=== PATIENT | female | born 1930 | race African-American/Black ===

== ENCOUNTER → 2018-03-01 | Outpatient (CLI) | payer MEDICARE ==
--- NOTE | 2018-03-01 14:11 | RADIOLOGY REPORT (SQ) ---
EXAM DESCRIPTION: CHEST PA/LATERAL COMPLETED DATE/TIME: 03/01/2018 1:41 pm REASON FOR STUDY: COUGH COMPARISON: None. EXAM PARAMETERS: NUMBER OF VIEWS: two views TECHNIQUE: Digital Frontal and Lateral radiographic views of the chest acquired. RADIATION DOSE: NA LIMITATIONS: none FINDINGS: LUNGS AND PLEURA: No opacities, masses or pneumothorax. No pleural effusion. MEDIASTINUM AND HILAR STRUCTURES: No masses or contour abnormalities. HEART AND VASCULAR STRUCTURES: Heart normal size. No evidence for failure. BONES: No acute findings. HARDWARE: None in the chest. OTHER: No other significant finding. IMPRESSION: NO SIGNIFICANT RADIOGRAPHIC FINDING IN THE CHEST. TECHNICAL DOCUMENTATION: JOB ID: [id number] [employer]- All Rights Reserved Reading location - IP/workstation name: [email or web address]
== END ==
LOC: OD 12:54
PROVIDERS: ATTEND Nurse Practitioner Family
DX: R05 Cough (principal)
CPT/HCPCS: 71046

== ENCOUNTER 2018-05-28 20:21 | Emergency (ER) | payer MEDICARE ==
[2018-05-28 21:26] LABS: ABSOLUTE LYMPHOCYTES (AUTO) 0.8 10^3/uL (0.5-4.7); ABSOLUTE MONOCYTES (AUTO) 0.4 10^3/uL (0.1-1.4); ABSOLUTE NEUT (AUTO) 5.6 10^3/uL (1.7-8.2); BASOPHILS % (AUTO) 0.4 % (0-2); EOSINOPHILS % (AUTO) 0.4 % (0-6); HEMATOCRIT 29.4 % (36.0-47.0); HEMOGLOBIN 9.9 g/dL (12.0-15.5); LYMPHOCYTES % (AUTO) 10.9 % (13-45); MEAN CORPUSCULAR HEMOGLOBIN 28.7 pg (27.0-33.4); MEAN CORPUSCULAR HGB CONC 33.8 g/dL (32.0-36.0); MEAN CORPUSCULAR VOLUME 85 fl (80-97); MONOCYTES % (AUTO) 6.5 % (3-13); PLATELET COUNT 186 10^3/uL (150-450); RED BLOOD COUNT 3.46 10^6/uL (3.72-5.28); RED CELL DISTRIBUTION WIDTH 14.8 % (11.5-14.0); SEGMENTED NEUTROPHILS % (AUTO) 81.8 % (42-78); TOTAL CELLS COUNTED % (AUTO) 100 %; WHITE BLOOD COUNT 6.9 10^3/uL (4.0-10.5)
[2018-05-28 21:36] LABS: INTERNATIONAL RATION (INR) 1.02; PROTHROMBIN TIME 13.9 SEC (11.4-15.4)
[2018-05-28 21:53] LABS: ALANINE AMINOTRANSFERASE 23 U/L (9-52); ALBUMIN 3.8 g/dL (3.5-5.0); ALKALINE PHOSPHATASE 65 U/L (38-126); ANION GAP 8 (5-19); ASPARTATE AMINO TRANSFERASE 16 U/L (14-36); BILIRUBIN,DIRECT 0.1 mg/dL (0.0-0.4); BILIRUBIN,TOTAL 0.2 mg/dL (0.2-1.3); BLOOD UREA NITROGEN 34 mg/dL (7-20); CALCIUM 9.2 mg/dL (8.4-10.2); CARBON DIOXIDE 26 mmol/L (22-30); CHLORIDE 105 mmol/L (98-107); GLUCOSE 118 mg/dL (75-110); TOTAL PROTEIN 6.6 g/dL (6.3-8.2)
--- NOTE | 2018-05-28 22:29 | ER Document Report ---
ED General - General Chief Complaint: Rectal Bleeding Stated Complaint: RECTAL HEMORRHAGE Time Seen by Provider: 05/28/18 21:56 Primary Care Provider: DHARA BENITO FNP-C [Primary Care Provider] - Follow up as needed Notes: Patient is an 87-year-old female past medical history of hypertension, hyperlipidemia, chronic anemia, presents complaining of one episode of bloody bowel movement. Patient states just prior to arrival she states she was having a good bowel movement. States that this was a large volume bowel movement. She states that when she wiped she noticed that there was a pink tinge on the paper. When she stood up she noticed that there is a small amount of blood and several clots in the toilet. This prompted her to come to the emergency department for further assessment. No history of GI bleed in the past. Does not use any form of anticoagulation. Has not seen her primary care doctor regarding today's concerns. Denies any abdominal pain, nausea, vomiting or hematemesis. Nothing improves or worsens her symptoms. At the time of my evaluation the patient denies any symptoms of any kind, laughing and joking during exam and history taking. TRAVEL OUTSIDE OF THE [place] IN LAST 30 DAYS: No - Related Data Allergies/Adverse Reactions: Penicillins Allergy (Verified 05/28/18 20:52) Past Medical History - General Information source: Patient - Social History Smoking Status: Former Smoker Frequency of alcohol use: None Drug Abuse: None Lives with: Family Family History: Reviewed & Not Pertinent Review of Systems - Review of Systems Notes: Constitutional: Negative for fever. HENT: Negative for sore throat. Eyes: Negative for visual changes. Cardiovascular: Negative for chest pain. Respiratory: Negative for shortness of breath. Gastrointestinal: Positive for rectal bleeding Genitourinary: Negative for dysuria. Musculoskeletal: Negative for back pain. Skin: Negative for rash. Neurological: Negative for headaches, weakness or numbness. 10 point ROS negative except as marked above and in HPI. Physical Exam - Vital signs Vitals: Temp Pulse Resp BP Pulse Ox 97.7 F 93 20 126/69 H 98 05/28/18 20:42 05/28/18 20:42 05/28/18 20:42 05/28/18 20:42 05/28/18 20:42 Interpretation: Normal Notes: PHYSICAL EXAMINATION: GENERAL: Well-appearing, well-nourished and in no acute distress. HEAD: Atraumatic, normocephalic. EYES: Pupils equal round and reactive to light, extraocular movements intact, s clera anicteric, conjunctiva are normal. ENT: nares patent, oropharynx clear without exudates. Moist mucous membranes. NECK: Normal range of motion, supple without lymphadenopathy LUNGS: Breath sounds clear to auscultation bilaterally and equal. No wheezes rales or rhonchi. HEART: Regular rate and rhythm without murmurs ABDOMEN: Soft, nontender, normoactive bowel sounds. No guarding, no rebound. No masses appreciated. Rectal: Multiple external hemorrhoids. Scant bright red blood around the anus. Digital rectal exam with brown stool with no blood content. EXTREMITIES: Normal range of motion, no pitting or edema. No cyanosis. NEUROLOGICAL: No focal neurological deficits. Moves all extremities spontaneously and on command. PSYCH: Normal mood, normal affect. SKIN: Warm, Dry, normal turgor, no rashes or lesions noted. Course - Re-evaluation Re-evalutation: 05/28/18 22:28 Patient presents with bright red blood per rectum likely diverticular or hemorrhoidal in origin. Patient does have several large external hemorrhoids as well as one palpable internal hemorrhoid. There does not appear to be any active bleeding. Although there is noted blood on a liner that she is wearing. Brown stool is present in the rectal vault although there is some bright red blood still on the outside of the anus. Patient is anemic at a hemoglobin of 9.9. She states that she does have a long-standing history of anemia at baseline but does not know where her hemoglobin normally runs and unfortunately do not have any previous labs. Patient's vitals are within acceptable limits. Her heart rate is 93, blood pressure 113 on 71. She has not had any additional bloody bowel movement since coming to the emergency department and only had one prior to arrival. Will recheck a second hemoglobin at 4 hours from initial and asked that the patient notify us for any further bright red blood per rectum. Patient has not had a colonoscopy in 11-12 years, would like to avoid a repeat colonoscopy at this advanced age I think this is a reasonable goal. The patient does not take any form of anticoagulation. She is otherwise very well in appearance, laughing and joking with me on examination. 05/29/18 01:40 Patient has not had any further rectal bleeding. No additional bloody bowel movements. Hemoglobin has gone from 9.9-9.4. Patient remains without tachycardia or hypotension, current heart rate is 93. Blood pressure 113 and 72. Please note that the last captured heart rate of 107 was much higher than patient had been running and I do not believe this is an accurate reflection of her heart rate. I have had a risks and benefits conversation with the patient and her daughter at the bedside regarding hospitalization for further serial CBCs and possible colonoscopy if these levels continue to deteriorate versus outpatient follow-up with her primary care doctor within the next 12 hours which the patient states she can easily achieved. We have reviewed that should she have any further bloody bowel movements at home she is to return to the emergency department immediately if she elects to go home. The patient and her daughter have elected to go home stating that they would rather monitor at home and follow-up with primary care as opposed to be hospitalized. They verbalized understanding that she has any further bloody bowel movements she is to return to the emergency department immediately. We have also reviewed the any lightheadedness, passing out, global weakness or vomiting would also be an indication to return. Patient has capacity. I believe this is an acceptable decision at this point. 05/29/18 03:54 - Vital Signs Vital signs: Temp Pulse Resp BP Pulse Ox 97.7 F 93 14 113/72 97 05/28/18 20:42 05/28/18 20:42 05/29/18 01:01 05/29/18 01:01 05/29/18 01:01 - Laboratory Result Diagrams: 05/29/18 00:10 05/28/18 21:05 Laboratory results interpreted by me: 05/28/18 05/28/18 05/29/18 21:05 21:05 00:10 RBC 3.46 L 3.31 L Hgb 9.9 L 9.4 L Hct 29.4 L 28.1 L RDW 14.8 H 14.9 H Seg Neutrophils % 81.8 H Lymphocytes % 10.9 L BUN 34 H Est GFR ( Amer) 56 L Est GFR (Non-Af Amer) 47 L Glucose 118 H Discharge - Discharge Clinical Impression: Rectal bleeding Anemia Qualifiers: Anemia type: unspecified type Qualified Code(s): D64.9 - Anemia, unspecified Condition: Stable Disposition: HOME, SELF-CARE Additional Instructions: Your seen today for rectal bleeding. Your hemoglobin went from 9.9-9.4 over the course of 5 hours. You elected to go home today in follow-up with your primary care doctor as opposed to be hospitalized. You need to return to the emergency department immediately if you have any further bloody bowel movements, pass out, become lightheaded, began vomiting, or have any other symptoms that are worrisome to you. Please follow-up with your primary care doctor today in the morning. Referrals: DHARA BENITO FNP-C [Primary Care Provider] - Follow up as needed
[2018-05-29 01:06] LABS: HEMATOCRIT 28.1 % (36.0-47.0); HEMOGLOBIN 9.4 g/dL (12.0-15.5); MEAN CORPUSCULAR HEMOGLOBIN 28.5 pg (27.0-33.4); MEAN CORPUSCULAR HGB CONC 33.6 g/dL (32.0-36.0); MEAN CORPUSCULAR VOLUME 85 fl (80-97); PLATELET COUNT 156 10^3/uL (150-450); RED BLOOD COUNT 3.31 10^6/uL (3.72-5.28); RED CELL DISTRIBUTION WIDTH 14.9 % (11.5-14.0); WHITE BLOOD COUNT 5.8 10^3/uL (4.0-10.5)
[2018-05-29 01:48] VITALS: BP 113/72
== END 2018-05-29 02:00 | disposition home or self-care (01) ==
LOC: ER 20:21
DX: K62.5 Hemorrhage of anus and rectum (principal); D64.9 Anemia, unspecified; I10 Essential (primary) hypertension; E78.5 Hyperlipidemia, unspecified; Z88.0 Allergy status to penicillin
CPT/HCPCS: 36415; 80053; 85025; 85027; 85610; 99283

== ENCOUNTER 2019-05-06 08:10 | Inpatient (IN) | payer MEDICARE ==
[2019-05-06 08:48] LABS: ABSOLUTE EOSINOPHILS # (AUTO) 0.1 10^3/uL (0.0-0.6); ABSOLUTE LYMPHOCYTES (AUTO) 0.9 10^3/uL (0.5-4.7); ABSOLUTE MONOCYTES (AUTO) 0.4 10^3/uL (0.1-1.4); ABSOLUTE NEUT (AUTO) 2.9 10^3/uL (1.7-8.2); BASOPHILS % (AUTO) 0.6 % (0-2); EOSINOPHILS % (AUTO) 1.4 % (0-6); HEMATOCRIT 31.3 % (36.0-47.0); HEMOGLOBIN 10.6 g/dL (12.0-15.5); LYMPHOCYTES % (AUTO) 20.1 % (13-45); MEAN CORPUSCULAR HGB CONC 33.9 g/dL (32.0-36.0); MEAN CORPUSCULAR VOLUME 86 fl (80-97); MONOCYTES % (AUTO) 8.9 % (3-13); PLATELET COUNT 198 10^3/uL (150-450); RED BLOOD COUNT 3.66 10^6/uL (3.72-5.28); RED CELL DISTRIBUTION WIDTH 13.8 % (11.5-14.0); TOTAL CELLS COUNTED % (AUTO) 100 %; WHITE BLOOD COUNT 4.2 10^3/uL (4.0-10.5)
[2019-05-06 09:05] LABS: ANION GAP 8 (5-19); BLOOD UREA NITROGEN 26 mg/dL (7-20); CALCIUM 9.2 mg/dL (8.4-10.2); CARBON DIOXIDE 28 mmol/L (22-30); CHLORIDE 105 mmol/L (98-107); GLUCOSE 112 mg/dL (75-110); POTASSIUM 3.9 mmol/L (3.6-5.0)
--- NOTE | 2019-05-06 12:06 | ER Document Report ---
Entered by DARRELL NARANJO SCRIBE 05/06/19 1115 Acting as scribe for:EVELINA FERRERA IV, MD ED General - General Chief Complaint: Rectal Bleeding Stated Complaint: RECTAL BLEEDING Time Seen by Provider: 05/06/19 11:13 Primary Care Provider: DHARA BENITO FNP-C [Primary Care Provider] - Follow up as needed Mode of Arrival: Medic Information source: Patient, Relative Notes: This 88 year old female patient brought in by EMS presents to the ED today with complaints of sudden onset rectal bleeding that began this morning. Patient states that she noticed dark red blood clots that came from her rectum in her urinary pad after her bowel movement. Daughter states that this has happened before less than x6 months ago and that the patient had a noninvasive video capsule performed. Patient denies history of diverticulosis or diverticulitis. Patient denies being on blood thinners. Patient denies any pain at this time. TRAVEL OUTSIDE OF THE [place] IN LAST 30 DAYS: No - Related Data Allergies/Adverse Reactions: Penicillins Allergy (Verified 05/06/19 10:51) Home Medications: Chlorthalidone. Omeprazole. Verapamil ER. Pravastatin. Celecoxib. Yadira D3. Anastrozole Past Medical History - General Information source: Patient - Social History Smoking Status: Unknown if Ever Smoked Cigarette use (# per day): No Chew tobacco use (# tins/day): No Smoking Education Provided: No Frequency of alcohol use: None Drug Abuse: None Family History: Reviewed & Not Pertinent Patient has suicidal ideation: No Patient has homicidal ideation: No - Past Medical History Cardiac Medical History: Reports: Hx Hypertension Renal/ Medical History: Reports: Hx Kidney Stones GI Medical History: Reports: Hx Gastroesophageal Reflux Disease Musculoskeletal Medical History: Reports Hx Arthritis Past Surgical History: Reports: Hx Breast Surgery - Left breast Review of Systems - Review of Systems Constitutional: No symptoms reported EENT: No symptoms reported Cardiovascular: No symptoms reported Respiratory: No symptoms reported Gastrointestinal: See HPI, Rectal bleeding. denies: Abdominal pain Genitourinary: No symptoms reported Female Genitourinary: No symptoms reported Musculoskeletal: See HPI. denies: Other - Rectal pain Skin: No symptoms reported Hematologic/Lymphatic: No symptoms reported Neurological/Psychological: No symptoms reported -: Yes All other systems reviewed and negative Physical Exam - Vital signs Vitals: Temp Pulse Resp BP Pulse Ox 97.5 F 101 H 16 133/81 H 98 05/06/19 08:39 05/06/19 08:39 05/06/19 08:39 05/06/19 08:39 05/06/19 08:39 - General General appearance: Appears well, Alert In distress: None - HEENT Head: Normocephalic, Atraumatic Eyes: Normal Pupils: PERRL - Respiratory Respiratory status: No respiratory distress Chest status: Nontender Breath sounds: Normal Chest palpation: Normal - Cardiovascular Rhythm: Regular Heart sounds: Normal auscultation Murmur: No - Abdominal Inspection: Normal Distension: No distension Bowel sounds: Normal Tenderness: Nontender - Abdomen soft Organomegaly: No organomegaly - Rectal Stool: Heme positive Hemorrhoids: External - Multiple - Back Back: Normal, Nontender - Extremities General upper extremity: Normal inspection General lower extremity: Normal inspection - Neurological Neuro grossly intact: Yes - Psychological Associated symptoms: Normal affect, Normal mood - Skin Skin Temperature: Warm Skin Moisture: Dry Skin Color: Normal Course - Vital Signs Vital signs: Temp Pulse Resp BP Pulse Ox 97.5 F 101 H 16 133/81 H 98 05/06/19 08:39 05/06/19 08:39 05/06/19 08:39 05/06/19 08:39 05/06/19 08:39 - Laboratory Result Diagrams: 05/06/19 08:36 05/06/19 08:36 Laboratory results interpreted by me: 05/06/19 05/06/19 08:36 08:36 RBC 3.66 L Hgb 10.6 L Hct 31.3 L BUN 26 H Est GFR (MDRD) Non-Af 50 L Glucose 112 H - Consults DR. MCKEON Time consulted: 12:20 - AGREEED PT NEEDED TO BE ADMITTED, BOWEL PREPPED THEN CONTACT SURGICALIST FOR SCOPE Reason for consultation: 05/06/19 12:27 GI BLEED Consulted provider: will see as inpatient DR. DELCID Time consulted: 12:27 Reason for consultation: 05/06/19 12:29 GI BLEED Consulted provider: will come to ER Discharge - Discharge Clinical Impression: GI bleed Condition: Good Disposition: ADMITTED OBSERVATION Admitting Provider: Fredy (Hospitalist) Unit Admitted: Medical Floor Referrals: DHARA BENITO FNP-C [Primary Care Provider] - Follow up as needed I personally performed the services described in the documentation, reviewed and edited the documentation which was dictated to the scribe in my presence, and it accurately records my words and actions.
[2019-05-06] MEDS ORDERED: ACETAMINOPHEN 325 MG TABLET PO PRN (12:45)
[2019-05-06] MEDS ORDERED: ONDANSETRON HCL INJ/PF 4 MG/2 ML SDV IV PRN (12:45)
[2019-05-06] MEDS ORDERED: NORMAL SALINE 1000 ML 1,000 ML IV PRN (12:45)
[2019-05-06] MEDS ORDERED: HYDRALAZINE HCL INJ/PF 20 MG/1 ML SDV IV PRN (12:50)
--- NOTE | 2019-05-06 12:58 | PDOC H&P ---
History of Present Illness Admission Date/PCP: MAITE MARR Patient complains of: Passing bright-colored blood per rectum History of Present Illness: FEDE OLIVAS is a 88 year old female history of hypertension, osteoarthritis, gastroesophageal reflux disease, history of breast biopsies for possible breast cancer on anastrozole came to the emergency room with complaints of passing bright-colored blood per rectum from this morning. It happened twice last 1 year. Denies any constipation denies any diarrhea denies any nausea vomiting or abdominal pains. Denies any problems with appetite. Denies any dizziness lightheadedness or headaches. pt is taking Celebrex for osteoarthritis. Patient requesting for DNI. If necessary she wants chest compressions and shocks. Past Medical History Cardiac Medical History: Reports: Hypertension EENT Medical History: Reports: None Neurological Medical History: Reports: None Endocrine Medical History: Reports: None Renal/ Medical History: Reports: None Malignancy Medical History: Reports: Breast Cancer GI Medical History: Reports: Gastroesophageal Reflux Disease Musculoskeltal Medical History: Reports: Arthritis Skin Medical History: Reports: None Psychiatric Medical History: Reports: None Hematology: Reports: Anemia Past Surgical History Past Surgical History: Reports: None Social History Information Source: Patient Lives with: Family Smoking Status: Unknown if Ever Smoked Electronic Cigarette use?: No Hx Recreational Drug Use: No Hx Prescription Drug Abuse: No - Advance Directive Resuscitation Status: Do Not Intubate Family History Family History: Reviewed & Not Pertinent Parental Family History Reviewed: No - Hypertension Children Family History Reviewed: No Sibling(s) Family History Reviewed.: No Medication/Allergy Allergies/Adverse Reactions: Penicillins Allergy (Verified 05/06/19 10:51) Review of Systems Constitutional: ABSENT: fatigue, fever(s), headache(s), night sweats, weakness, weight gain, weight loss, other Eyes: ABSENT: visual disturbances Ears: ABSENT: hearing changes Nose, Mouth, and Throat: ABSENT: sore throat Cardiovascular: ABSENT: chest pain, dyspnea on exertion, edema, orthropnea, palpitations Respiratory: ABSENT: dyspnea, hemoptysis Gastrointestinal: PRESENT: other - bright-colored blood per rectum. ABSENT: constipation, diarrhea, dysphagia, heartburn, hematemesis, hematochezia Neurological: ABSENT: abnormal gait, abnormal speech, confusion, dizziness, focal weakness, syncope Psychiatric: ABSENT: anxiety, depression, homidical ideation, suicidal ideation Physical Exam Vital Signs: Temp Pulse Resp BP Pulse Ox 97.5 F 101 H 16 133/81 H 98 05/06/19 08:39 05/06/19 08:39 05/06/19 08:39 05/06/19 08:39 05/06/19 08:39 Intake & Output 05/05/19 05/06/19 05/07/19 06:59 06:59 06:59 Weight 73.028 kg General appearance: PRESENT: no acute distress, well-developed, well-nourished Head exam: PRESENT: atraumatic Eye exam: PRESENT: PERRLA Mouth exam: PRESENT: moist, neck supple Teeth exam: PRESENT: poor dentation Neck exam: ABSENT: carotid bruit, JVD, lymphadenopathy, thyromegaly Respiratory exam: PRESENT: clear to auscultation peg. ABSENT: rales, rhonchi, wheezes Cardiovascular exam: PRESENT: RRR. ABSENT: diastolic murmur, rubs, systolic murmur GI/Abdominal exam: PRESENT: normal bowel sounds, soft. ABSENT: distended, guarding, mass, organolmegaly, rebound, tenderness Rectal exam: PRESENT: bloody stool Extremities exam: PRESENT: full ROM. ABSENT: calf tenderness, clubbing, pedal edema Neurological exam: PRESENT: alert, awake, oriented to person, oriented to place, oriented to time, oriented to situation, CN II-XII grossly intact. ABSENT: motor sensory deficit Psychiatric exam: PRESENT: appropriate affect, normal mood. ABSENT: homicidal ideation, suicidal ideation Results Laboratory Results: 05/06/19 08:36 05/06/19 08:36 05/06/19 05/06/19 05/06/19 08:36 08:36 11:57 WBC 4.2 RBC 3.66 L Hgb 10.6 L Hct 31.3 L MCV 86 MCH 29.0 MCHC 33.9 RDW 13.8 Plt Count 198 Seg Neutrophils % 69.0 Sodium 141.4 Potassium 3.9 Chloride 105 Carbon Dioxide 28 Anion Gap 8 BUN 26 H Creatinine 1.04 Est GFR ( Amer) > 60 Glucose 112 H Calcium 9.2 Blood Type A POSITIVE Antibody Screen NEGATIVE Assessment and Plan - Diagnosis (1) GI bleed Is this a current diagnosis for this admission?: Yes Plan: 05/06/2019 patient came in for bright-colored blood per rectum hemoglobin is 10.6. ER physician discussed the case with Dr. Lindsay plan is to do the colonoscopy/endoscopy while she was here in the hospital. Plan is to do the CBC on daily basis. She is on RALPH hoses not on DVT prophylaxis. Celebrex was discontinued. (2) HTN (hypertension) Is this a current diagnosis for this admission?: No Plan: 05/06/2019 patient has history of chronic essential hypertension blood pressure is 133/80. Stable. Patient is on chlorthalidone at home plan is to resume the m edication. (3) Osteoarthritis Is this a current diagnosis for this admission?: No Plan: 05/06/2019 patient has history of chronic osteoarthritis taking Celebrex at home patient was advised to hold Celebrex for now. (4) GERD (gastroesophageal reflux disease) Is this a current diagnosis for this admission?: No Plan: 05/06/2019 patient has history of chronic gastroparesis reflux disease on omeprazole. Started on Protonix 40 mg p.o. daily.
--- NOTE | 2019-05-06 22:44 | PDOC CONSULTATION ---
Consultation Consult Date: 05/06/19 Attending physician:: THEO HENDERSON Provider Consulted: LILY MCKEON Consult reason:: rectal bleeding History of Present Illness Admission Date/PCP: 05/06/19 13:38 MAITE MARR History of Present Illness: FEDE OLIVAS is a 88 year old female with a history of hypertension, osteoarthritis, gastroesophageal reflux disease , history of breast biopsies for possible breast cancer on anastrozole came to the emergency room with complaints of passing bright-colored blood per rectum from this morning. It happened twice last 1 year. Denies any constipation denies any diarrhea denies any nausea vomiting or abdominal pains. Denies any problems with appetite. Denies any dizziness lightheadedness or headaches. pt is taking Celebrex for osteoarthritis. pt states she came to er last yr and for similar reason and was discharged from er and follow up her primary physician who referred her for colonoscopy. Patient states she underwent colonoscopy Dr. Boyer last year at this time. Past Medical History Cardiac Medical History: Reports: Hypertension EENT Medical History: Reports: None Neurological Medical History: Reports: None Endocrine Medical History: Reports: None Renal/ Medical History: Reports: None Malignancy Medical History: Reports: Breast Cancer GI Medical History: Reports: Gastroesophageal Reflux Disease Musculoskeltal Medical History: Reports: Arthritis Skin Medical History: Reports: None Psychiatric Medical History: Reports: None Hematology: Reports: Anemia Past Surgical History Past Surgical History: Reports: None Social History Lives with: Family Smoking Status: Never Smoker Electronic Cigarette use?: No Frequency of Alcohol Use: None Hx Recreational Drug Use: No Drugs: None Hx Prescription Drug Abuse: No - Advance Directive Resuscitation Status: Do Not Intubate Family History Family History: Reviewed & Not Pertinent Parental Family History Reviewed: No Children Family History Reviewed: NA Sibling(s) Family History Reviewed.: NA Medication/Allergy Home Medications: Anastrozole [Arimidex 1 mg Tablet] 1 mg PO DAILY 05/06/19 Cholecalciferol (Vitamin D3) [Vitamin D3 2000 unit Tablet] 2,000 unit PO DAILY 05/06/19 Omeprazole 20 mg PO DAILY 05/06/19 Pravastatin Sodium 20 mg PO DAILY 05/06/19 Verapamil HCl [Verapamil ER] 240 mg PO DAILY 05/06/19 Allergies/Adverse Reactions: Penicillins Allergy (Verified 05/06/19 10:51) Review of Systems Constitutional: ABSENT: as per HPI, anorexia, chills, fatigue, fever(s), headache(s), night sweats, weakness, weight gain, weight loss, other Eyes: ABSENT: as per HPI, visual disturbances, other Ears: ABSENT: as per HPI, hearing changes, other Cardiovascular: ABSENT: as per HPI, chest pain, dyspnea on exertion, edema, orthropnea, palpitations, other Respiratory: ABSENT: as per HPI, cough, dyspnea, hemoptysis, sputum, other Gastrointestinal: PRESENT: hematochezia Genitourinary: ABSENT: as per HPI, difficulty urinating, dysuria, hematuria, nocturia, other Musculoskeletal: ABSENT: as per HPI, back pain, deformity, joint swelling, muscle weakness, other Integumentary: ABSENT: as per HPI, diaphoresis, erythema, lesions, pruritus, rash, wounds, other Neurological: ABSENT: as per HPI, abnormal gait, abnormal movements, abnormal speech, confusion, convulsions, dizziness, focal weakness, frequent falls, lack of coordination, memory loss, numbness, paresthesias, restless legs, syncope, tingling, tremor(s), vertigo, weakness, other Psychiatric: ABSENT: as per HPI, anxiety, depression, hallucinations, homidical ideation, suicidal ideation, other Endocrine: ABSENT: as per HPI, cold intolerance, flushing, heat intolerance, menstrual abnormalities, polydipsia, polyphagia, polyuria, other Hematologic/Lymphatic: PRESENT: other - Patient's notes bleeding every time she wipes after bowel movement and bleeding with some clots after bowel movements. Physical Exam Vital Signs: Temp Pulse Resp BP Pulse Ox 98.0 F 107 H 16 135/78 H 97 05/06/19 20:10 05/06/19 20:10 05/06/19 20:10 05/06/19 20:10 05/06/19 20:10 Intake & Output 05/05/19 05/06/19 05/07/19 06:59 06:59 06:59 Intake Total 240 Balance 240 Weight 73.028 kg General appearance: PRESENT: no acute distress Head exam: PRESENT: normocephalic Eye exam: PRESENT: EOMI Ear exam: PRESENT: normal external ear exam Mouth exam: PRESENT: moist Neck exam: PRESENT: full ROM Respiratory exam: PRESENT: clear to auscultation peg Cardiovascular exam: PRESENT: RRR Pulses: PRESENT: normal radial pulses, normal femoral pulses Vascular exam: PRESENT: normal capillary refill GI/Abdominal exam: PRESENT: soft Rectal exam: PRESENT: other - Inspection of her anus shows prolapsed hemorrhoids that are currently not bleeding Extremities exam: PRESENT: full ROM Musculoskeletal exam: PRESENT: full ROM Neurological exam: PRESENT: alert, awake, oriented to person, oriented to place Psychiatric exam: PRESENT: appropriate affect Skin exam: PRESENT: dry Results Laboratory Results: 05/06/19 08:36 05/06/19 08:36 05/06/19 05/06/19 05/06/19 08:36 08:36 11:57 WBC 4.2 RBC 3.66 L Hgb 10.6 L Hct 31.3 L MCV 86 MCH 29.0 MCHC 33.9 RDW 13.8 Plt Count 198 Seg Neutrophils % 69.0 Sodium 141.4 Potassium 3.9 Chloride 105 Carbon Dioxide 28 Anion Gap 8 BUN 26 H Creatinine 1.04 Est GFR ( Amer) > 60 Glucose 112 H Calcium 9.2 Blood Type A POSITIVE Antibody Screen NEGATIVE Assessment & Plan - Plan Summary Plan Summary: Impression patient is been admitted for the hospital after she presented to the emergency room with some clots per rectum right red blood on the toilet tissue after wiping. Her hemoglobin has not significantly changed in fact it was 10.6 on admission today, up from 9.4 last year. After long discussion with the patient at bedside and her daughter it was determined that she underwent a colonoscopy a year ago by Dr. Boyer Patient states that she was told that her colonoscopy was normal. We did find a notation in her chart that her primary physician did appoint her with Dr. Boyer after her emergency room visit for the similar problem last year. Currently she is not having any active bleeding her hemoglobin is stable on examination she does have a number of external hemorrhoids. Recommendation 1. patient should start on Metamucil fiber supplementation. 2. Patient can be referred to the [facility] as an outpatient for hemorrhoidal banding. With a normal colonoscopy done last year it is unlikely that we will find any significant source of bleeding other than her moderate hemorrhoids.
[2019-05-07 05:44] LABS: ABSOLUTE EOSINOPHILS # (AUTO) 0.1 10^3/uL (0.0-0.6); ABSOLUTE MONOCYTES (AUTO) 0.3 10^3/uL (0.1-1.4); ABSOLUTE NEUT (AUTO) 1.7 10^3/uL (1.7-8.2); BASOPHILS % (AUTO) 0.5 % (0-2); EOSINOPHILS % (AUTO) 2.4 % (0-6); HEMATOCRIT 28.1 % (36.0-47.0); HEMOGLOBIN 9.6 g/dL (12.0-15.5); LYMPHOCYTES % (AUTO) 30.8 % (13-45); MEAN CORPUSCULAR HEMOGLOBIN 29.5 pg (27.0-33.4); MEAN CORPUSCULAR HGB CONC 34.2 g/dL (32.0-36.0); MEAN CORPUSCULAR VOLUME 86 fl (80-97); MONOCYTES % (AUTO) 10.7 % (3-13); PLATELET COUNT 164 10^3/uL (150-450); RED BLOOD COUNT 3.26 10^6/uL (3.72-5.28); SEGMENTED NEUTROPHILS % (AUTO) 55.6 % (42-78); TOTAL CELLS COUNTED % (AUTO) 100 %; WHITE BLOOD COUNT 3.1 10^3/uL (4.0-10.5)
[2019-05-07] MEDS ORDERED: PANTOPRAZOLE SODIUM 20 MG TABLET.DR PO SCH (06:00)
[2019-05-07 06:01] LABS: ALBUMIN 3.2 g/dL (3.5-5.0); ALKALINE PHOSPHATASE 59 U/L (38-126); ANION GAP 9 (5-19); ASPARTATE AMINO TRANSFERASE 17 U/L (14-36); BILIRUBIN,DIRECT 0.2 mg/dL (0.0-0.4); BILIRUBIN,TOTAL 0.4 mg/dL (0.2-1.3); BLOOD UREA NITROGEN 18 mg/dL (7-20); CALCIUM 9.2 mg/dL (8.4-10.2); CARBON DIOXIDE 27 mmol/L (22-30); CHLORIDE 106 mmol/L (98-107); CHOLESTEROL 153.49 mg/dL (0-200); GLUCOSE 88 mg/dL (75-110); POTASSIUM 3.6 mmol/L (3.6-5.0); TOTAL PROTEIN 6.2 g/dL (6.3-8.2); TRIGLYCERIDES 142 mg/dL (<150)
[2019-05-07 06:11] LABS: DIRECT LDL 73 mg/dL (<100)
--- NOTE | 2019-05-07 11:27 | PDOC DISCHARGE SUMMARY ---
Impression - Admit/DC Date/PCP Admission Date/Primary Care Provider: 05/06/19 13:38 PATY MARR-C Discharge Date: 05/07/19 - Discharge Diagnosis (1) GI bleed Is this a current diagnosis for this admission?: Yes (2) HTN (hypertension) Is this a current diagnosis for this admission?: No (3) Osteoarthritis Is this a current diagnosis for this admission?: No (4) GERD (gastroesophageal reflux disease) Is this a current diagnosis for this admission?: No - Assessment Summary: (1) GI bleed Is this a current diagnosis for this admission?: Yes Plan: 05/06/2019 patient came in for bright-colored blood per rectum hemoglobin is 10.6. ER physician discussed the case with Dr. Mckeon plan is to do the colonoscopy/endoscopy while she was here in the hospital. Plan is to do the CBC on daily basis. She is on RALPH hoses not on DVT prophylaxis. Celebrex was discontinued. 05/07/2019-patient's hemoglobin today is 9.6. Stable. No evidence of any GI bleed anymore. Patient has capsule endoscopy [address] Mckeon is planning to see her as an outpatient in 1 week time. Patient agreed with the plan going home today. She was advised to avoid Celebrex at this time. (2) HTN (hypertension) Is this a current diagnosis for this admission?: No Plan: 05/06/2019 patient has history of chronic essential hypertension blood pressure is 133/80. Stable. Patient is on chlorthalidone at home plan is to resume the medication. 05/07/2019-patient has history of chronic hypertension blood pressure today is 135/55 stable. Advised to continue chlorthalidone at home. (3) Osteoarthritis Is this a current diagnosis for this admission?: No Plan: 05/06/2019 patient has history of chronic osteoarthritis taking Celebrex at home patient was advised to hold Celebrex for now. 05/07/2019-patient has history of chronic severe osteoarthritis involving the ankles and knees. Taking Celebrex at home advised her to take Tylenol instead of Celebrex. (4) GERD (gastroesophageal reflux disease) Is this a current diagnosis for this admission?: No Plan: 05/06/2019 patient has history of chronic gastroparesis reflux disease on omeprazole. Started on Protonix 40 mg p.o. daily. - Additional Information Resuscitation Status: Do Not Intubate Discharge Diet: Cardiac Discharge Activity: Activity As Tolerated Referrals: DHARA BENITO FNP-C [Primary Care Provider] - Follow up as needed LILY MCKEON MD [ACTIVE STAFF] - (One week. We will call with follow-up appointment date and time.) Home Medications: Anastrozole [Arimidex 1 mg Tablet] 1 mg PO DAILY 05/06/19 Cholecalciferol (Vitamin D3) [Vitamin D3 2000 unit Tablet] 2,000 unit PO DAILY 05/06/19 Omeprazole 20 mg PO DAILY 05/06/19 Pravastatin Sodium 20 mg PO DAILY 05/06/19 Verapamil HCl [Verapamil ER] 240 mg PO DAILY 05/06/19 History of Present Illiness History of Present Illness: FEDE OLIVAS is a 88 year old female history of hypertension, osteoarthritis, gastroesophageal reflux disease, history of breast biopsies for possible breast cancer on anastrozole came to the emergency room with complaints of passing bright-colored blood per rectum from this morning. It happened twice last 1 year. Denies any constipation denies any diarrhea denies any nausea vomiting or abdominal pains. Denies any problems with appetite. Denies any dizziness lightheadedness or headaches. pt is taking Celebrex for osteoarthritis. Patient requesting for DNI. If necessary she wants chest compressions and shocks. Hospital Course Hospital Course: 88 year old female history of hypertension, osteoarthritis, gastroesophageal reflux disease, history of breast biopsies for possible breast cancer on anastrozole came to the emergency room with complaints of passing bright-colored blood per rectum from this morning. It happened twice last 1 year. Denies any constipation denies any diarrhea denies any nausea vomiting or abdominal pains. Denies any problems with appetite. Denies any dizziness lightheadedness or headaches. pt is taking Celebrex for osteoarthritis. Patient requesting for DNI. If necessary she wants chest compressions and shocks. 05/07/2019 [id number] female admitted with bright-colored blood per rectum today's hemoglobin is 9.6. Surgical consult was done Dr. Mckeon is planning to see her in his office in 1 week time. Patient agreed with the discharge plan going home today. No more rectal bleed is seen during the hospital stay. pt is advised to avoid NSAID's and Celebrex. Physical Exam Vital Signs: Temp Pulse Resp BP Pulse Ox 98.3 F 79 18 132/59 H 97 05/07/19 10:45 05/07/19 10:45 05/07/19 10:45 05/07/19 10:45 05/07/19 10:45 Intake & Output 05/06/19 05/07/19 05/08/19 06:59 06:59 06:59 Intake Total 240 Balance 240 Weight 73.8 kg General appearance: PRESENT: no acute distress Head exam: PRESENT: atraumatic Eye exam: PRESENT: PERRLA Mouth exam: PRESENT: dry mucosa Neck exam: ABSENT: carotid bruit, JVD, lymphadenopathy, thyromegaly Respiratory exam: PRESENT: decreased breath sounds Cardiovascular exam: PRESENT: RRR. ABSENT: diastolic murmur, rubs, systolic murmur GI/Abdominal exam: PRESENT: normal bowel sounds, soft. ABSENT: distended, guarding, mass, organolmegaly, rebound, tenderness Rectal exam: PRESENT: deferred Extremities exam: PRESENT: full ROM. ABSENT: calf tenderness, clubbing, pedal edema Neurological exam: PRESENT: alert, awake, oriented to person, oriented to place, oriented to time, oriented to situation, CN II-XII grossly intact. ABSENT: motor sensory deficit Psychiatric exam: PRESENT: appropriate affect, normal mood. ABSENT: homicidal ideation, suicidal ideation Results Laboratory Results: WBC 3.1 10^3/uL (4.0-10.5) L 05/07/19 05:13 RBC 3.26 10^6/uL (3.72-5.28) L 05/07/19 05:13 Hgb 9.6 g/dL (12.0-15.5) L 05/07/19 05:13 Hct 28.1 % (36.0-47.0) L 05/07/19 05:13 MCV 86 fl (80-97) 05/07/19 05:13 MCH 29.5 pg (27.0-33.4) 05/07/19 05:13 MCHC 34.2 g/dL (32.0-36.0) 05/07/19 05:13 RDW 14.0 % (11.5-14.0) 05/07/19 05:13 Plt Count 164 10^3/uL (150-450) 05/07/19 05:13 Lymph % (Auto) 30.8 % (13-45) 05/07/19 05:13 [place] % (Auto) 10.7 % (3-13) 05/07/19 05:13 Eos % (Auto) 2.4 % (0-6) 05/07/19 05:13 Baso % (Auto) 0.5 % (0-2) 05/07/19 05:13 Absolute Neuts (auto) 1.7 10^3/uL (1.7-8.2) 05/07/19 05:13 Absolute Lymphs (auto) 1.0 10^3/uL (0.5-4.7) 05/07/19 05:13 Absolute Monos (auto) 0.3 10^3/uL (0.1-1.4) 05/07/19 05:13 Absolute Eos (auto) 0.1 10^3/uL (0.0-0.6) 05/07/19 05:13 Absolute Basos (auto) 0.0 10^3/uL (0.0-0.2) 05/07/19 05:13 Seg Neutrophils % 55.6 % (42-78) 05/07/19 05:13 Sodium 141.8 mmol/L (137-145) 05/07/19 05:13 Potassium 3.6 mmol/L (3.6-5.0) 05/07/19 05:13 Chloride 106 mmol/L (98-107) 05/07/19 05:13 Carbon Dioxide 27 mmol/L (22-30) 05/07/19 05:13 Anion Gap 9 (5-19) 05/07/19 05:13 BUN 18 mg/dL (7-20) 05/07/19 05:13 Creatinine 0.92 mg/dL (0.52-1.25) 05/07/19 05:13 Est GFR ( Amer) > 60 (>60) 05/07/19 05:13 Est GFR (MDRD) Non-Af 58 (>60) L 05/07/19 05:13 Glucose 88 mg/dL (75-110) 05/07/19 05:13 Hemoglobin A1c % 6.4 % (4.7-6.0) H 05/07/19 05:13 Calcium 9.2 mg/dL (8.4-10.2) 05/07/19 05:13 Magnesium 1.6 mg/dL (1.6-2.3) 05/07/19 05:13 Total Bilirubin 0.4 mg/dL (0.2-1.3) 05/07/19 05:13 Direct Bilirubin 0.2 mg/dL (0.0-0.4) 05/07/19 05:13 Neonat Total Bilirubin Not Reportable 05/07/19 05:13 Neonat Direct Bilirubin Not Reportable 05/07/19 05:13 Neonat Indirect Bili Not Reportable 05/07/19 05:13 AST 17 U/L (14-36) 05/07/19 05:13 ALT 9 U/L (<35) 05/07/19 05:13 Alkaline Phosphatase 59 U/L (38-126) 05/07/19 05:13 Total Protein 6.2 g/dL (6.3-8.2) L 05/07/19 05:13 Albumin 3.2 g/dL (3.5-5.0) L 05/07/19 05:13 Triglycerides 142 mg/dL (<150) 05/07/19 05:13 Cholesterol 153.49 mg/dL (0-200) 05/07/19 05:13 LDL Cholesterol Direct 73 mg/dL (<100) 05/07/19 05:13 VLDL Cholesterol 28.0 mg/dL (10-31) 05/07/19 05:13 HDL Cholesterol 36 mg/dL (>40) L 05/07/19 05:13 TSH 1.46 uIU/mL (0.47-4.68) 05/07/19 05:13 POC Stool Occult Blood POSITIVE (NEGATIVE) 05/06/19 11:24 Blood Type A POSITIVE 05/06/19 11:57 Antibody Screen NEGATIVE 05/06/19 11:57 Plan Plan of Treatment: Patient is going home today advised to follow-up with Dr. Mckeon in 1 week time. Patient agreed with the discharge plan today. Stroke Is this a Stroke Patient?: No Acute Heart Failure - Is this a Heart Failure Patient?: No
[2019-05-07 12:15] VITALS: BP 128/71
== END 2019-05-07 12:05 | disposition home or self-care (01) | DRG 379 ==
LOC: ER 08:10 → EH 13:22 → OBSVTOIN 13:38 → 5 15:07
PROVIDERS: ADMIT Internal Medicine; ATTEND Internal Medicine
DX: K92.2 Gastrointestinal hemorrhage, unspecified (principal); I10 Essential (primary) hypertension; K21.9 Gastro-esophageal reflux disease without esophagitis; M19.90 Unspecified osteoarthritis, unspecified site
CPT/HCPCS: 36415; 80048; 80053; 80061; 83036; 83735; 84443; 85025; 86850; 86900; 86901; 96360; 96361; 99284; J3490; J7030

== ENCOUNTER → 2019-05-16 | Outpatient (CLI) | payer MEDICARE ==
--- NOTE | 2019-05-16 17:16 | WOMENS IMAGING REPORT ---
EXAM DESCRIPTION: 3D DX MAMMO BILAT COMPLETED DATE/TIME: 05/16/2019 10:02 am REASON FOR STUDY: Z85.3 PERSONAL HISTORY OF MALIGNANT NEOPLASM OF BREAST Z85.3 PERSONAL HISTORY OF MALIGNANT NEOPLASM OF BREAST COMPARISON: 06/05/2017 prior mammograms. No comparison pathology report, patient has had surgical exc ision in the left breast. EXAM PARAMETERS: Standard craniocaudal and mediolateral oblique views of each breast recorded using digital acquisition and breast tomosynthesis. Left true lateral view. Read with the assistance of CAD: [email or web address] - [employer] Version 9.2 LIMITATIONS: None. FINDINGS: RIGHT BREAST MASSES: No suspicious masses. CALCIFICATIONS: No new or suspicious calcifications. ARCHITECTURAL DISTORTION: None. ASYMMETRY: None noted. OTHER: Surgical clips in the lateral breast. LEFT BREAST MASSES: No suspicious masses. CALCIFICATIONS: No new or suspicious calcifications. ARCHITECTURAL DISTORTION: New distortion in the anterolateral left breast with scar marker now in missy ce. This was the site of surgical biopsy. This is the patient's new baseline. ASYMMETRY: None noted. OTHER: No other significant finding. IMPRESSION: Post treatment changes in the breast. Includes scarring in the left breast status post biopsy. BREAST DENSITY: b. There are scattered areas of fibroglandular density. BIRAD: ASSESSMENT: 2 Benign findings. RECOMMENDATION: RECOMMENDED FOLLOW UP: Yearly mammography. SPECIFIC INTERVENTION/IMAGING/CONSULTATION RECOMMENDED:No additional intervention/ imaging/consultati on needed at this time. COMMUNICATION:No significant abnormalities to discuss with the patient today. COMMENT: The patient has been notified of the results by letter per SA requirements. Additional no tification policies are in place for contacting patient with suspicious or incomplete findings. Quality ID #[id number]: The [employer] recommends an annual screening mammogram for women aged 40 years or over. This facility utilizes a reminder system to ensure that all patients receive reminder letters, and/or direct phone calls for appointments. This includes reminders for routine scr eening mammograms, diagnostic mammograms, or other Breast Imaging Interventions when appropriate. Th is patient will be placed in the appropriate reminder system. TECHNICAL DOCUMENTATION: FINDING NUMBER: (1) ASSESSMENT: (1) JOB ID: [id number] [employer]- All Rights Reserved Reading location - IP/workstation name: [email or web address]
== END ==
LOC: WI 09:13
PROVIDERS: ATTEND Nurse Practitioner Family
DX: Z08 Encounter for follow-up examination after completed treatment for malignant neoplasm (principal); Z85.3 Personal history of malignant neoplasm of breast
CPT/HCPCS: 77066; G0279; 77062